=== PATIENT | female | born 1975 | race Two or more races ===

== ENCOUNTER 2025-01-07 16:43 | Inpatient (IN) | payer OTHER ==
[~2025-01-07] VITALS: Ht 172.7 cm; Wt 229.1 kg
--- NOTE | 2025-01-07 18:05 | NUR ---
PACIENTE ALERTA Y ORIENTADO X3 LA MISMA REFIERE ULCERAS EN AMBOS PIES POR PRESION TERAPEUTICA. S/V ESTABLE DENTRO DE DIOP CONDICION PACIENTE EN ESPERA DE EVALUACION MEDICA.
[2025-01-07] MEDS ORDERED: FAMOTIDINE/PF 20 MG/2 ML VIAL IV ONE (19:00)
[2025-01-07] MEDS ORDERED: CEFTRIAXONE SODIUM 2,000 MG VIAL IV ONE (19:00)
[2025-01-07] MEDS ORDERED: FAMOTIDINE/PF 20 MG/2 ML VIAL ONE ×2 (19:14→20:45)
[2025-01-07] MEDS ORDERED: CEFTRIAXONE SODIUM 2,000 MG VIAL ONE (19:14)
[2025-01-07] MEDS ORDERED: ACETAMINOPHEN 325 MG TABLET PO PRN (20:00)
[2025-01-07] MEDS ORDERED: DEXTROSE 50 % IN WATER 0.5 G/ML DISP.SYRIN IV PRN (20:00)
[2025-01-07] MEDS ORDERED: INSULIN LISPRO 1,000 UNIT/10 ML UNITS SUBCUTANEO PRN (20:00)
[2025-01-07 20:57] LABS: BASO % 0.2 % (0.1-1.2); HEMATOCRIT 33.9 % (34.1-44.9); HEMOGLOBIN 10.4 g/dL (11.2-15.7); LYMPH # 1.06 (1.18-3.74); LYMPH % 11.3 % (19.3-53.1); MEAN CORPUSCULAR HEMOGLOBIN 23.4 pg (25.6-32.2); MONO # 0.49 (0.24-0.82); MONO % 5.2 % (4.7-12.5); NEUT # 7.81 (1.56-6.13); PLATELET COUNT 347 K/uL (163-369); RED BLOOD COUNT 4.44 M/uL (3.93-5.22); RED CELL DISTRIBUTION WIDTH 18.5 % (11.6-14.4)
[2025-01-07 21:02] LABS: ERYTHROCYTE SEDIMENTATION RATE 45 mm/hr (0-20)
[2025-01-07 21:15] LABS: INR 1.06; PARTIAL THROMBOPLASTIN TIME 24.2 SECONDS (22.0-34.0); PROTHROMBIN TIME 11.5 SECONDS (9.0-11.5)
[2025-01-07 21:30] LABS: BILIRUBIN TOTAL 0.37 mg/dL (0.3-1.2); CALCIUM 8.5 mg/dL (8.5-10.1); CREATININE SERUM 0.72 mg/dL (0.55-1.02); GFR 86.82; GLOBULINA 4.3 G/DL (2.4-3.5); POTASSIUM 4.02 mEq/L (3.5-5.1); TOTAL PROTEIN 7.3 gm/dL (6.4-8.2)
[2025-01-07 21:35] LABS: C-REACTIVE PROTEIN 1.38 MG/DL (0.00-0.29)
--- NOTE | 2025-01-07 21:42 | NUR ---
SE EDUCA A PACIENTE SOBRE TRATAMIENTO MEDICO SOLICITADO, SE REALIZA VAMSI DE MUESTRAS BAJO MEDIDAS ASEPTICAS Y SE ADMINISTRA MEDICAMENTO EFRAIN ORDEN MEDICA. AL MOMENTO PACIENTE PENDIENTE ENTREGA U/A.
[2025-01-07 21:50] VITALS: BP 98/67; O2SAT 98
[2025-01-08] MEDS ORDERED: PIPERACILLIN/TAZOBACTAM SODIUM 3.375 GM in DEXTROSE 5 % IN WATER 100 ML IV SCH
[2025-01-08 00:53] VITALS: BP 104/65; O2SAT 98
[2025-01-08] MEDS ORDERED: LEVOTHYROXINE SODIUM 200 MCG TABLET PO SCH (06:00)
[2025-01-08] MEDS ORDERED: ACETAMINOPHEN 500 MG GEL..CAP PO PRN (08:00)
[2025-01-08 08:28] VITALS: BP 116/77; O2SAT 97
[2025-01-08] MEDS ORDERED: HYDROCHLOROTHIAZIDE 12.5 MG CAPSULE PO SCH (09:00)
[2025-01-08] MEDS ORDERED: LINEZOLID IN DEXTROSE 5% 300 ML IV SCH (09:00)
[2025-01-08] MEDS ORDERED: PREDNISONE 20 MG TABLET PO SCH (09:00)
[2025-01-08] MEDS ORDERED: SODIUM HYPOCHLORITE 1OZ TOP SCH (09:00)
[2025-01-08] MEDS ORDERED: IRBESARTAN 300 MG TABLET PO SCH (09:00)
[2025-01-08] MEDS ORDERED: HYDROXYCHLOROQUINE SULFATE 200 MG TABLET PO SCH (09:00)
[2025-01-08] MEDS ORDERED: ENOXAPARIN SODIUM 40 MG/0.4 ML SYRINGE SUBCUTANEO SCH (09:00)
[2025-01-08] MEDS ORDERED: DEXTROSE 50 % IN WATER 0.5 G/ML VIAL IV PRN (10:45)
[2025-01-08] MEDS ORDERED: AMPICILLIN SODIUM/SULBACTAM NA 3,000 MG in 0.9 % SODIUM CHLORIDE 100 ML IV SCH (17:00)
[2025-01-08 17:19] VITALS: BP 133/93; O2SAT 94
[2025-01-08] MEDS ORDERED: CIPROFLOXACIN IN 5 % DEXTROSE 400 MG/200 ML PIGGYBAG IV SCH (21:00)
[2025-01-09 00:40] VITALS: BP 125/85; O2SAT 98
[2025-01-09 08:00] VITALS: BP 135/84; O2SAT 98
[2025-01-09 16:00] VITALS: BP 158/97; O2SAT 95
[2025-01-10 01:24] VITALS: BP 99/66; O2SAT 98
[2025-01-10 08:00] VITALS: BP 97/65; O2SAT 99
[2025-01-10 17:06] VITALS: BP 105/73; O2SAT 98
[2025-01-10 22:04] LABS: BASO % 0.2 % (0.1-1.2); HEMOGLOBIN 10.4 g/dL (11.2-15.7); LYMPH # 1.22 (1.18-3.74); LYMPH % 12.6 % (19.3-53.1); MONO # 0.48 (0.24-0.82); MONO % 4.9 % (4.7-12.5); NEUT # 7.95 (1.56-6.13); NEUT % 81.9 % (34.0-71.1); PLATELET COUNT 364 K/uL (163-369); RED BLOOD COUNT 4.53 M/uL (3.93-5.22); RED CELL DISTRIBUTION WIDTH 18.1 % (11.6-14.4)
[2025-01-10 22:20] LABS: BILIRUBIN TOTAL 0.34 mg/dL (0.3-1.2); CALCIUM 8.5 mg/dL (8.5-10.1); CREATININE SERUM 0.9 mg/dL (0.55-1.02); GFR 67.11; GLOBULINA 3.9 G/DL (2.4-3.5); POTASSIUM 4.31 mEq/L (3.5-5.1); TOTAL PROTEIN 6.9 gm/dL (6.4-8.2)
[2025-01-11 01:17] VITALS: BP 125/85; O2SAT 99
[2025-01-11 09:30] VITALS: BP 134/81; O2SAT 95
[2025-01-11 16:31] VITALS: BP 92/60; O2SAT 98
[2025-01-12 01:20] VITALS: BP 98/63; O2SAT 95
[2025-01-12 08:00] VITALS: BP 115/80; O2SAT 95
== END 2025-01-12 15:53 | disposition home or self-care (01) | DRG 638 ==
LOC: ER 17:04 → SURH 20:09 → SEC-K 20:09 → SURH 20:19
PROVIDERS: Emergency Medicine; ADMIT Internal Medicine; ATTEND Internal Medicine
PROC: 8E0ZXY6 Isolation (ICD-10-PCS; principal; 2025-01-07)
DX: E11.621 Type 2 diabetes mellitus with foot ulcer (principal); L97.818 Non-pressure chronic ulcer of other part of right lower leg with other specified severity; I89.0 Lymphedema, not elsewhere classified; M32.9 Systemic lupus erythematosus, unspecified; Z79.4 Long term (current) use of insulin; B96.5 Pseudomonas (aeruginosa) (mallei) (pseudomallei) as the cause of diseases classified elsewhere; E66.01 Morbid (severe) obesity due to excess calories